=== PATIENT | male | born 1945 | race Caucasian/White ===

== ENCOUNTER 2021-07-21 12:28 | Emergency (ER) | payer MEDICARE, OTHER | END 2021-07-21 13:17 | disposition left against medical advice (07) | LOC: ERS 12:28 | DX: Z53.21 Procedure and treatment not carried out due to patient leaving prior to being seen by health care provider (principal) | CPT/HCPCS: 36416; 93005; 94760 ==

== ENCOUNTER 2023-07-11 15:52 | Emergency (ER) | payer MEDICARE, OTHER ==
[~2023-07-11 15:52] MED LIST: Iopamidol-370 76% 500 ML MDV (1 ML CHARGE) ONE
[2023-07-11 16:24] LABS: #Basophils 0.1 thou/uL (0.0-0.2); #Monocytes 1.3 thou/uL (0.11-0.59); #Neutrophils 7.9 thou/uL (1.40-6.50); %Basophils 0.5 % (0.0-1.0); %Eosinophils 0.3 % (0.0-10.0); %Lymphocytes 13.3 % (21.0-51.0); %Monocytes 12.1 % (0.0-10.0); %Neutrophils 73.3 % (42.0-75.0); Hematocrit 41.3 % (42.0-52.0); Hemoglobin 13.2 g/dL (14.0-18.0); Mean Corpuscular Hemoglobin 27.8 pg (27.0-31.0); Mean Corpuscular Volume 86.9 fl (78.0-98.0); Mean Platelet Volume 9.5 fL (7.4-10.4); Platelet Count 307 10x3/uL (130-400); RBC Distribution Width 14.6 % (11.5-14.5); Red Blood Cell (RBC) Count 4.75 mill/uL (4.70-6.10); White Blood Cell (WBC) Count 10.7 10x3/uL (4.8-10.8)
[2023-07-11 16:47] LABS: ALT (SGPT) 25 U/L (8-55); AST (SGOT) 32 U/L (5-34); Albumin 3.9 g/dL (3.4-4.8); Alkaline Phosphatase 119 U/L (40-110); Anion Gap 15 mmol/L (10-20); BUN (Urea Nitrogen) 22 mg/dL (8.4-25.7); Bilirubin, Total 0.8 mg/dL (0.2-1.2); Calc. Creatinine Clearance 0 mL/min (70-130); Carbon Dioxide 28 mmol/L (23-31); Chloride 96 mmol/L (98-107); Estimated GFR 55; Globulin 4.1 g/dL (2.4-3.5); Glucose 100 mg/dL (83-110); Lipase 17 U/L (8-78); Potassium 4.3 mmol/L (3.5-5.1); Sodium 135 mmol/L (136-145)
[2023-07-11 16:51] LABS: Troponin I 0.024 ng/mL (< 0.028)
[2023-07-11 19:10] LABS: Magnesium 1.6 mg/dL (1.6-2.6)
[2023-07-11 19:51] LABS: Bacteria/HPF None Seen HPF (None Seen); Bilirubin Negative (Negative); Blood, Urine Negative (Negative); CAUTI Indications for Culture Pelvic or flank pain; Clarity Turbid (Clear); Glucose, Urine (Dipstick) Normal (Negative); Ketone, Urine Trace mg/dL (Negative); Leukocyte Negative Leu/uL (Negative); Nitrite Negative (Negative); Protein, Urine (Dipstick) 100 mg/dL (Neg-Trace); RBC/HPF 0-3 HPF (0-3); Specific Gravity, Urine 1.043 (1.002-1.036); Squamous Epithelial 0-3 HPF (0-3); Urobilinogen 3 mg/dL (Less than 2); WBC/HPF 0-3 HPF (0-3); pH, Urine 5.5 (5.0-9.0)
[2023-07-11 19:55] LABS: Urine Culture Reflex No No
[2023-07-11] MEDS ORDERED: Heparin 5,000 UNITS/ML VIAL ONE (20:24)
[2023-07-11] MEDS ORDERED: Heparin 25,000 units/D5W 500 ML ONE (20:25)
[2023-07-11 20:50] LABS: INR-International Normal Ratio 1.1; PTT 32.4 sec (22.9-36.1); Prothrombin Time 14.2 sec (12.0-14.7)
== END 2023-07-12 01:31 | disposition short-term general hospital (02) ==
LOC: ERS 15:52
DX: I82.210 Acute embolism and thrombosis of superior vena cava (principal); R91.8 Other nonspecific abnormal finding of lung field; I25.10 Atherosclerotic heart disease of native coronary artery without angina pectoris; E11.9 Type 2 diabetes mellitus without complications; E78.5 Hyperlipidemia, unspecified; I10 Essential (primary) hypertension; Z87.891 Personal history of nicotine dependence; Z79.899 Other long term (current) drug therapy; Z79.82 Long term (current) use of aspirin; Z79.84 Long term (current) use of oral hypoglycemic drugs
CPT/HCPCS: 36415; 70450; 71045; 71275; 80053; 81001; 83690; 83735; 83880; 84443; 84484; 85025; 85610; 85730; 93005; 96374; J1644; Q9967

== ENCOUNTER 2023-07-25 18:02 | Observation (INO) | payer MEDICARE, OTHER ==
[2023-07-25 19:08] LABS: #Monocytes 0.8 thou/uL (0.11-0.59); #Neutrophils 8.6 thou/uL (1.40-6.50); %Basophils 0.2 % (0.0-1.0); %Lymphocytes 6.6 % (21.0-51.0); %Monocytes 8.3 % (0.0-10.0); %Neutrophils 84.1 % (42.0-75.0); Hematocrit 40.4 % (42.0-52.0); Hemoglobin 12.6 g/dL (14.0-18.0); Mean Corpuscular HGB CONC 31.2 g/dL (32.0-36.0); Mean Corpuscular Hemoglobin 27.2 pg (27.0-31.0); Mean Corpuscular Volume 87.3 fl (78.0-98.0); Mean Platelet Volume 9.6 fL (7.4-10.4); Platelet Count 399 10x3/uL (130-400); RBC Distribution Width 15.3 % (11.5-14.5); Red Blood Cell (RBC) Count 4.63 mill/uL (4.70-6.10); White Blood Cell (WBC) Count 10.2 10x3/uL (4.8-10.8)
[2023-07-25 19:32] LABS: ALT (SGPT) 32 U/L (8-55); AST (SGOT) 38 U/L (5-34); Albumin 3.7 g/dL (3.4-4.8); Alkaline Phosphatase 101 U/L (40-110); Anion Gap 15 mmol/L (10-20); BUN (Urea Nitrogen) 25 mg/dL (8.4-25.7); Bilirubin, Total 0.3 mg/dL (0.2-1.2); Calc. Creatinine Clearance 0 mL/min (70-130); Calcium 9.6 mg/dL (7.8-10.44); Carbon Dioxide 29 mmol/L (23-31); Chloride 97 mmol/L (98-107); Estimated GFR 55; Globulin 4.2 g/dL (2.4-3.5); Glucose 158 mg/dL (83-110); Potassium 4.8 mmol/L (3.5-5.1); Protein, Total 7.9 g/dL (5.8-8.1); Sodium 136 mmol/L (136-145)
[2023-07-25 19:35] LABS: Troponin I Less than 0.010 ng/mL (< 0.028)
[2023-07-25] MEDS ORDERED: Morphine 4 MG/ML VIAL ONE ×2 (19:52→22:23)
[2023-07-25] MEDS ORDERED: Dexamethasone 10 MG/ML VIAL ONE (21:30)
[2023-07-25 23:19] LABS: Troponin I Less than 0.010 ng/mL (< 0.028)
[2023-07-26] MEDS ORDERED: Ondansetron PF 4 MG/2 ML Vial IVP PRN (00:15)
[2023-07-26] MEDS ORDERED: Acetaminophen 325 MG TAB PO PRN (00:15)
[2023-07-26] MEDS ORDERED: Ondansetron ODT 4 MG TAB SL PRN (00:15)
[2023-07-26 00:31] VITALS: BMI 28.6
[2023-07-26] MEDS ORDERED: guaiFENesin/Codeine 200 mg/20 mg 10 ml Cup PO PRN (01:20)
[2023-07-26] MEDS ORDERED: Glucagon 1 MG/ML KIT IM PRN (01:23)
[2023-07-26] MEDS ORDERED: Dextrose 50% Abboject 50 ML SYRINGE SLOW IVP PRN (01:23)
[2023-07-26] MEDS ORDERED: Dextrose 5% in Water 1,000 ML IV PRN (01:23)
[2023-07-26] MEDS ORDERED: HumaLOG 300 UNITS/3 ML VIAL SC PRN ×2 (01:23)
[2023-07-26] MEDS ORDERED: Ipratropium/Albuterol 3 ML NEB NEB PRN (01:55)
[2023-07-26] MEDS ORDERED: Benzonatate 100 MG CAP PO PRN (01:57)
[2023-07-26 03:01] LABS: Troponin I Less than 0.010 ng/mL (< 0.028)
[2023-07-26] MEDS: Dexamethasone 4 mg/ml Vial SLOW IVP SCH ×2 (04:15→11:28)
[2023-07-26] MEDS: HYDROcodone/Acetaminophen 5/325 mg Tablet PO PRN ×2 (04:15→09:01)
[2023-07-26] MEDS ORDERED: Heparin 5,000 UNITS/ML VIAL SC SCH (09:00)
[2023-07-26] MEDS ORDERED: Lorazepam 1 MG TAB PO PRN (09:08)
[2023-07-26] MEDS ORDERED: Morphine 2 MG/ML VIAL SLOW IVP PRN (09:40)
[2023-07-26] MEDS ORDERED: Metoprolol Tartrate 5 MG (5 mL) VIAL IVP PRN (09:40)
[2023-07-26] MEDS ORDERED: Magnesium 2 GM/50 ML(in water) 2 GM in Premix 1 BAG IVPB SCH (09:45)
[2023-07-26] MEDS ORDERED: Lorazepam 0.5 MG TAB PO SCH (10:30)
[2023-07-26 11:34] VITALS: BP 127/85; TEMP 97.5
[2023-07-26 11:56] LABS: Magnesium 2.1 mg/dL (1.6-2.6)
[2023-07-26] MEDS ORDERED: Lorazepam 2 MG/ML VIAL SLOW IVP PRN (12:00)
[2023-07-26] MEDS ORDERED: Magnevist 469MG/ML 20 ML VIAL ONE (12:02)
[2023-07-26] MEDS ORDERED: Lorazepam 0.5 MG TAB PO PRN (12:15)
[2023-07-26] MEDS ORDERED: Senokot S 8.6-50 MG TAB PO SCH (21:00)
== END 2023-07-26 18:08 | disposition home or self-care (01) ==
LOC: ERS 18:02 → 2NO 21:01 → INTOOBSV 21:01
PROVIDERS: ADMIT Internal Medicine; ATTEND Internal Medicine
DX: R51.9 Headache, unspecified (principal); C34.90 Malignant neoplasm of unspecified part of unspecified bronchus or lung; I50.22 Chronic systolic (congestive) heart failure; N18.30 Chronic kidney disease, stage 3 unspecified; D64.9 Anemia, unspecified; R07.9 Chest pain, unspecified; I25.10 Atherosclerotic heart disease of native coronary artery without angina pectoris; R00.0 Tachycardia, unspecified; Z87.891 Personal history of nicotine dependence; Z79.82 Long term (current) use of aspirin; Z79.899 Other long term (current) drug therapy; Z88.0 Allergy status to penicillin
CPT/HCPCS: 70553; 71045; 71275; 77412 ×2; 80053; 82962; 83735; 83880; 84484 ×3; 85025; 93005; 96372; 96374; 96375 ×2; 96376 ×3; 99285; G0378; 36415; 36416; A9579; J1100; J1644; J2060; J2270; J3475; Q9967